=== PATIENT | male | born 1945 | race Caucasian/White ===

== ENCOUNTER → 2017-11-13 | Outpatient (CLI) | payer MEDICARE, OTHER ==
--- NOTE | 2017-11-13 13:10 | PCVCIMAG ---
APPROVED REPORT Study performed: 11/13/2017 08:52:02 EXAM: Comprehensive 2D, Doppler, and color-flow Echocardiogram Patient Location: Echo lab Status: routine BSA: 2.68 HR: 48 bpmBP: 130/72 mmHg Rhythm: Bradycardia Other Information Study Quality: Adequate Indications Congestive Heart Failure Dyspnea Fatigue 2D Dimensions LVEF(%): 44.48 (>50%) IVSd: 16.25 (7-11mm) LVDd: 55.64 mm PWd: 13.07 (7-11mm)Ascending Ao: 41.60 (22-36mm) LVDs: 43.22 (25-40mm) Aortic Root: 37.48 mm LV Single Plane 4CH: 52.26 % LV Single Plane 2CH: 53.70 %Pillai's LVEF: 52.98 % Biplane EF: 53.9 % Volumes Left Atrial Volume (Systole) Single Plane 4CH: 123.43 mLSingle Plane 2CH: 114.61 mL LA ESV Index: 45.00 mL/m2 Aortic Valve AoV Peak Abraham.: 1.73 m/s AO Peak Gr.: 11.99 mmHgLVOT Max P.39 mmHg LVOT Max V: 1.44 m/s Mitral Valve E/A Ratio: 1.6 MV Decel. Time: 233.46 ms MV E Max Abraham.: 0.54 m/s MV A Abraham.: 0.34 m/s IVRT: 100.35 ms Pulmonary Valve PV Peak Abraham.: 0.89 m/sPV Peak Gr.: 3.15 mmHg Pulmonary Vein P Vein S: 0.47 m/sP Vein A: 0.28 m/s P Vein D: 0.46 m/sP Vein A Dur.: 141.9 msec P Vein S/D Ratio: 1.02 Tricuspid Valve TR Peak Abraham.: 2.23 m/s TR Peak Gr.: 19.97 mmHg Left Ventricle The left ventricle is normal size. There is normal LV segmental wall motion. Moderate concentric left ventricular hypertrophy. Left ventricular systolic function is within the lower limits of normal. Mildly increased LVOT velocity without obstruction. LVEF is 50-55%. The left ventricular diastolic function is normal. Right Ventricle The right ventricle is normal size. The right ventricular systolic function is normal. Atria Left atrium is moderately dilated. The right atrium size is normal. Aortic Valve The aortic valve is normal in structure. No aortic regurgitation is present. There is no aortic valvular stenosis. Mitral Valve The mitral valve is normal in structure. Trace mitral regurgitation. No evidence of mitral valve stenosis. Tricuspid Valve The tricuspid valve is normal in structure. Trace tricuspid regurgitation with PAP of 27 mmHg. Pulmonic Valve The pulmonary valve is normal in structure. Mild pulmonic regurgitation. Great Vessels The aortic root is normal in size. The aortic sinus of valsalva is dilated to 4.6 cm. The ascending aorta is mildly dilated to 4.2 cm. IVC is normal in size and collapses with >50% inspiration Pericardium There is no pericardial effusion. There is no pleural effusion. <Conclusion> The left ventricle is normal size. Moderate concentric left ventricular hypertrophy. Left ventricular systolic function is within the lower limits of normal. Mildly increased LVOT velocity without obstruction. LVEF is 50-55%. The left ventricular diastolic function is normal. The right ventricle is normal size. Left atrium is moderately dilated. The aortic valve is normal in structure. Trace mitral regurgitation. Trace tricuspid regurgitation with PAP of 27 mmHg. The aortic root is normal in size. The aortic sinus of valsalva is dilated to 4.6 cm. There is no pericardial effusion.
== END | disposition home or self-care (01) ==
LOC: PCVCIMAG 15:50
PROVIDERS: ATTEND Family Medicine
DX: I37.1 Nonrheumatic pulmonary valve insufficiency (principal); R53.83 Other fatigue; I11.0 Hypertensive heart disease with heart failure; I50.9 Heart failure, unspecified
CPT/HCPCS: 93306